=== PATIENT | female | born 1945 ===

== ENCOUNTER → 2016-04-08 | Outpatient (CLI) | payer MEDICARE, MEDICAID ==
[2016-04-08 16:05] LABS: Basophils # (auto) 0 uL; Basophils % (auto) 0.5 % (0.0-2.0); Eosinophils # (auto) 0.3 uL; Hematocrit 41.7 % (36.0-46.0); Hemoglobin 13.8 g/dL (12.2-16.2); Lymphocytes # (auto) 1.3 uL; Lymphocytes % (auto) 25.1 % (10.0-50.0); Mean Corpuscular Hemoglobin 29.2 pg (28.0-32.0); Mean Corpuscular Volume 88.4 fL (80.0-100.0); Mean Platelet Volume 9.3 fL (7.4-10.4); Monocytes # (auto) 0.4 uL; Monocytes % (auto) 7.1 % (0.0-12.0); Neutrophils # (auto) 3.3 uL; Neutrophils % (auto) 61.3 % (37.0-80.0); Platelet Count (auto) 234 10^3/uL (140-450); Red Cell Distribution Width 14.3 % (11.6-16.0); White Blood Cell 5.3 10^3/uL (4.4-10.8)
[2016-04-08 16:16] LABS: Albumin 4.1 g/dL (3.4-5.0); BUN/Creatinine Ratio 24.3; Bilirubin, Total 0.4 mg/dL (0.2-1.0); Calcium 9.6 mg/dL (8.5-10.1); Potassium 4.1 mmol/L (3.5-5.1); Total Protein 7.3 g/dL (6.4-8.2)
== END | disposition home or self-care (01) ==
LOC: LAB 15:29
DX: I10 Essential (primary) hypertension (principal); M25.50 Pain in unspecified joint; D64.9 Anemia, unspecified; M06.9 Rheumatoid arthritis, unspecified; Z79.899 Other long term (current) drug therapy
CPT/HCPCS: 36415; 80053; 85025; 85652; 86141

== ENCOUNTER 2018-03-21 10:08 | Emergency (ER) | payer MEDICARE, MEDICAID ==
[~2018-03-21] VITALS: Ht 152.4 cm; Wt 78.5 kg
[2018-03-21 10:35] VITALS: BP 150/62
[2018-03-21] MEDS ORDERED: LIDOCAINE 1% HCL (LOCAL ANESTH.) INJ 20ML MDV IJ ONE (11:00)
[2018-03-21] MEDS ORDERED: ACETAMINOPHEN 325 MG TAB PO ONE (11:15)
== END 2018-03-21 11:19 | disposition home or self-care (01) ==
LOC: ER 10:08
DX: S60.451A Superficial foreign body of left index finger, initial encounter (principal); J45.909 Unspecified asthma, uncomplicated; I10 Essential (primary) hypertension; W22.8XXA Striking against or struck by other objects, initial encounter; Y93.89 Activity, other specified; Y92.89 Other specified places as the place of occurrence of the external cause; Y99.8 Other external cause status
CPT/HCPCS: 73140; 99284; J2001; 10120